=== PATIENT | female | born 1970 | race Caucasian/White ===

== ENCOUNTER → 2018-01-27 | Outpatient (CLI) | payer BC | LOC: MC.RAD 08:09 | DX: Z12.31 Encounter for screening mammogram for malignant neoplasm of breast (principal); N63.21 Unspecified lump in the left breast, upper outer quadrant ==

== ENCOUNTER → 2018-02-13 | Outpatient (CLI) | payer BC | LOC: MC.RAD 08:15 | DX: N60.02 Solitary cyst of left breast (principal) ==

== ENCOUNTER → 2019-11-09 | Outpatient (CLI) | payer BC | LOC: MC.RAD 12:22 | DX: Z12.31 Encounter for screening mammogram for malignant neoplasm of breast (principal); N63.20 Unspecified lump in the left breast, unspecified quadrant; N63.10 Unspecified lump in the right breast, unspecified quadrant ==

== ENCOUNTER → 2019-11-12 | Outpatient (CLI) | payer BC | LOC: MC.RAD 13:07 | DX: N60.01 Solitary cyst of right breast (principal); N60.02 Solitary cyst of left breast ==

== ENCOUNTER → 2020-12-29 | Outpatient (CLI) | payer BC | LOC: MC.RAD 10:29 | DX: Z12.31 Encounter for screening mammogram for malignant neoplasm of breast (principal); N63.21 Unspecified lump in the left breast, upper outer quadrant ==

== ENCOUNTER → 2021-01-05 | Outpatient (CLI) | payer BC | LOC: MC.RAD 11:00 | DX: N60.02 Solitary cyst of left breast (principal); N60.01 Solitary cyst of right breast ==

== ENCOUNTER 2021-09-01 06:58 | Day surgery (SDC) | payer BC ==
[~2021-09-01] VITALS: Ht 165.1 cm; Wt 73.7 kg
[2021-09-01] MEDS ORDERED: SYNTHROID0.088 MG/T PO (07:25)
[2021-09-01] MEDS ORDERED: LEXAPRO 10MG10 MG PO (07:25)
[2021-09-01] MEDS ORDERED: WELLBUTRIN XL150 MG PO (07:25)
[2021-09-01] MEDS ORDERED: OMEGA-31 SGL PO (07:26)
[2021-09-01] MEDS ORDERED: MASON NATURAL2000 IU PO (07:26)
[2021-09-01] MEDS ORDERED: CALCIUM-MAGNES1 EAC1 PO (07:27)
[2021-09-01] MEDS ORDERED: LYSINE1000 MG PO (07:27)
[2021-09-01] MEDS ORDERED: DOXYCYCLINE 10100 MG PO (07:28)
[2021-09-01] MEDS ORDERED: INVIGOFLEX D1500 MG PO (07:28)
[2021-09-01 07:32] VITALS: BP 122/84; PULSE 72; TEMP 97.6
[2021-09-01 08:25] VITALS: BP 108/61; PULSE 60; TEMP 96.5
--- NOTE | 2021-09-01 08:25 | NUR ---
Writted report obtained from ADDY Menedz. Vitals obtained. Call garcía is within reach.
[2021-09-01 08:40] VITALS: BP 107/71; PULSE 60
--- NOTE | 2021-09-01 08:40 | NUR ---
Vitals obtained. The patient is tolerating her water and muffin well. Denies nausea. No vomiting. The patient expressed desire to be discharged.
[2021-09-01 08:55] VITALS: BP 108/61; PULSE 60
--- NOTE | 2021-09-01 08:55 | NUR ---
Vitals obtained. IV discontinued. Catheter tip intact. Pressure bandage applied. No redness or swelling. DC instructions and educational material was reviewed with the patient, who verbalized understanding and signed the related paperwork. The patient denied having any questions or concerns.
--- NOTE | 2021-09-01 09:10 | NUR ---
PT OFF UNIT PER WHEELCHAIR ACCOMPANIED BY . PT DISCHARGE TO HOME WITH PER PERSONAL VEHICLE.
== END 2021-09-01 09:10 | disposition home or self-care (01) ==
LOC: SDCO 06:58
DX: Z12.11 Encounter for screening for malignant neoplasm of colon (principal); K62.89 Other specified diseases of anus and rectum; Z83.71 Family history of colonic polyps
CPT/HCPCS: J2704; J7120